=== PATIENT | male | born 1960 | race African-American/Black ===

== ENCOUNTER 2018-05-27 09:54 | Observation (INO) | payer OTHER ==
[~2018-05-27 09:54] MED LIST: CIPROFLOXACIN 400 MG in D5W 200 ML IVPB
[2018-05-27] MEDS ORDERED: PROPOFOL 20 ML (12:51)
[2018-05-27] MEDS ORDERED: MIDAZOLAM 1 MG/ML 2 ML INJ (12:51)
[2018-05-27] MEDS ORDERED: FENTAnyl 50 MCG/ML VIAL (12:51)
[2018-05-27] MEDS ORDERED: KETOROLAC 30 MG INJ (13:48)
[2018-05-27] MEDS ORDERED: ONDANSETRON 4 MG INJ (13:48)
[2018-05-27] MEDS ORDERED: ROCURONIUM 50 MG INJ (13:48)
[2018-05-27] MEDS ORDERED: METOCLOPRAMIDE 10 MG INJ (13:48)
[2018-05-27] MEDS ORDERED: DEXAMETHASONE 4 MG/ML 5 ML INJ (13:48)
[2018-05-27] MEDS ORDERED: HYDROmorphONE 1 MG/5 ML IV SYRINGE IV ×3 (14:00)
[2018-05-27] MEDS ORDERED: LABETALOL HCL 20MG INJ IV (14:00)
[2018-05-27] MEDS ORDERED: EPHEDrine SULFATE 50 MG/5 ML SYG IV (14:00)
[2018-05-27] MEDS ORDERED: FENTAnyl 50 MCG/ML VIAL IV ×3 (14:00)
[2018-05-27] MEDS ORDERED: hydrALAzine 20 MG INJ IV (14:00)
[2018-05-27] MEDS ORDERED: ONDANSETRON 4 MG INJ IV (14:00)
[2018-05-27] MEDS ORDERED: OXYCODONE/ACETAMINOPHEN (5/325) TAB PO (14:00)
[2018-05-27] MEDS ORDERED: METOCLOPRAMIDE 10 MG INJ IV (14:00)
[2018-05-27] MEDS ORDERED: DIPHENHYDRAMINE 50 MG INJ IV (14:00)
[2018-05-27] MEDS ORDERED: GLYCOPYRROLATE 0.4 MG INJ (14:24)
[2018-05-27] MEDS ORDERED: NEOSTIGMINE 3 MG/3 ML SYRINGE (14:24)
[2018-05-27] MEDS: MEPERIDINE 25 MG INJ IV (14:49)
[2018-05-27] MEDS ORDERED: morphine 2 MG INJ IV (15:00)
[2018-05-27] MEDS ORDERED: HYDROCODONE/APAP (5/325) TAB PO (15:00)
[2018-05-27] MEDS ORDERED: MAGNESIUM HYDROXIDE 30ML CUP PO (15:00)
[2018-05-27 15:10] LABS: ADD MAN DIFF? NO
[2018-05-27 15:11] LABS: WHITE BLOOD COUNT 3.7 10^3/ul (4.8-10.8)
[2018-05-27 15:11] LABS: BASOPHILS % 0.5 % (0.0-2.0); EOSINOPHILS # 0.1 10^3/ul (0.0-0.5); EOSINOPHILS % 2.7 % (0.0-7.0); HEMATOCRIT 38.8 % (42.0-52.0); HEMOGLOBIN 12.8 g/dl (14.0-18.0); LYMPHOCYTES # 1.4 10^3/ul (0.8-2.9); LYMPHOCYTES % 37.4 % (15.0-51.0); MEAN CORPUSCULAR HEMOGLOBIN 33.5 pg (29.0-33.0); MEAN CORPUSCULAR VOLUME 101.6 fl (82.0-101.0); MEAN PLATELET VOLUME 9.3 fl (7.4-10.4); MONOCYTE # 0.4 10^3/ul (0.3-0.9); MONOCYTES % 10.2 % (0.0-11.0); NEUTROPHIL # 1.8 10^3/ul (1.6-7.5); NEUTROPHILS % 49.2 % (39.0-77.0); PLATELET COUNT 200 10^3/UL (140-415); RED BLOOD COUNT 3.82 10^6/ul (4.70-6.10); RED CELL DISTRIBUTION WIDTH 12.3 % (11.5-14.5)
[2018-05-27 15:27] LABS: HOLD TRANSMISSIONS 1
[2018-05-27] MEDS: BELLADONNA ALK/OPIUM SUPP PR (15:46)
[2018-05-27] MEDS: DEXTROSE 5%-0.45% NACL 1,000 ML IV ×2 (15:52→20:42)
[2018-05-27] MEDS: CIPROFLOXACIN 500 MG TAB PO (17:51)
[2018-05-27] MEDS: TAMSULOSIN (SR) 0.4 MG CAP PO (20:36)
[2018-05-27] MEDS: DOCUSATE SODIUM 100 MG CAP PO (20:36)
[2018-05-27] MEDS: morphine 2 MG INJ IV (20:37)
[2018-05-27] MEDS: GABAPENTIN 300 MG CAP PO (20:37)
[2018-05-28] MEDS: morphine 2 MG INJ IV ×3 (01:34→13:08)
[2018-05-28] MEDS: CIPROFLOXACIN 500 MG TAB PO (05:59)
[2018-05-28] MEDS: DOCUSATE SODIUM 100 MG CAP PO (09:09)
[2018-05-28] MEDS: FINASTERIDE 5 MG TAB PO (09:12)
[2018-05-28] MEDS: GABAPENTIN 300 MG CAP PO ×2 (09:12→13:07)
== END 2018-05-28 14:42 | disposition home or self-care (01) ==
LOC: SDS 09:54 → REC 15:06 → PP2 18:05
PROVIDERS: Urology
DX: R33.9 Retention of urine, unspecified (principal)
CPT/HCPCS: 52630; 85025; 88305; 99217

== ENCOUNTER 2018-08-26 07:22 | Observation (INO) | payer OTHER ==
[2018-08-26] MEDS: CIPROFLOXACIN 400 MG in D5W 200 ML IVPB (06:00)
[2018-08-26] MEDS ORDERED: PROPOFOL 20 ML (09:07)
[2018-08-26] MEDS ORDERED: SUCCINYLCHOLINE CHLORIDE 100 MG/5 ML SYG IV (09:07)
[2018-08-26] MEDS ORDERED: GLYCOPYRROLATE 0.4 MG INJ ×2 (09:07→09:58)
[2018-08-26] MEDS ORDERED: NEOSTIGMINE 3 MG/3 ML SYRINGE (09:07)
[2018-08-26] MEDS ORDERED: ROCURONIUM 50 MG INJ (09:07)
[2018-08-26] MEDS ORDERED: LIDOCAINE 2% (SDV) 5 ML INJ (09:07)
[2018-08-26] MEDS ORDERED: ONDANSETRON 4 MG INJ (09:25)
[2018-08-26] MEDS ORDERED: CIPROFLOXACIN 400MG/D5W 200 ML (09:25)
[2018-08-26] MEDS ORDERED: HYDROmorphONE 1 MG/5 ML IV SYRINGE IV ×3 (09:30)
[2018-08-26] MEDS ORDERED: ONDANSETRON 4 MG INJ IV (09:30)
[2018-08-26] MEDS ORDERED: LABETALOL HCL 20MG INJ IV (09:30)
[2018-08-26] MEDS ORDERED: METOCLOPRAMIDE 10 MG INJ IV (09:30)
[2018-08-26] MEDS ORDERED: MIDAZOLAM 1 MG/ML 2 ML INJ IV (09:30)
[2018-08-26] MEDS ORDERED: DIPHENHYDRAMINE 50 MG INJ IV (09:30)
[2018-08-26] MEDS ORDERED: MEPERIDINE 25 MG INJ IV (09:30)
[2018-08-26] MEDS ORDERED: FENTAnyl 50 MCG/ML VIAL IV ×3 (09:30)
[2018-08-26] MEDS ORDERED: EPHEDrine 25 MG/5 ML SYG IV (09:30)
[2018-08-26] MEDS ORDERED: hydrALAzine 20 MG INJ IV (09:30)
[2018-08-26] MEDS: BELLADONNA ALK/OPIUM SUPP PR (10:00)
[2018-08-26] MEDS ORDERED: BELLADONNA ALK/OPIUM SUPP PR (10:30)
[2018-08-26] MEDS ORDERED: MAGNESIUM HYDROXIDE 30ML CUP PO (10:30)
[2018-08-26] MEDS: morphine 2 MG INJ IV ×2 (13:38→22:04)
[2018-08-26] MEDS: GABAPENTIN 300 MG CAP PO ×2 (13:39→20:16)
[2018-08-26] MEDS: DEXTROSE 5%-0.45% NACL 1,000 ML IV (13:39)
[2018-08-26] MEDS: FINASTERIDE 5 MG TAB PO (13:39)
[2018-08-26] MEDS: HYDROCODONE/APAP (5/325) TAB PO ×2 (15:08→19:04)
[2018-08-26] MEDS: TAMSULOSIN (SR) 0.4 MG CAP PO (20:15)
[2018-08-26] MEDS: CIPROFLOXACIN 500 MG TAB PO (20:15)
[2018-08-26] MEDS: DOCUSATE SODIUM 100 MG CAP PO (20:16)
[2018-08-27] MEDS: HYDROCODONE/APAP (5/325) TAB PO (00:48)
[2018-08-27] MEDS: morphine 2 MG INJ IV ×2 (04:42→11:04)
[2018-08-27] MEDS: DEXTROSE 5%-0.45% NACL 1,000 ML IV ×2 (06:25→07:28)
[2018-08-27] MEDS: CIPROFLOXACIN 500 MG TAB PO (07:23)
[2018-08-27] MEDS: GABAPENTIN 300 MG CAP PO (08:35)
[2018-08-27] MEDS: DOCUSATE SODIUM 100 MG CAP PO (08:36)
== END 2018-08-27 11:55 | disposition home or self-care (01) ==
LOC: SDS 07:22 → REC 10:25 → MS1 13:09
DX: N40.1 Benign prostatic hyperplasia with lower urinary tract symptoms (principal); R33.8 Other retention of urine
CPT/HCPCS: 51102; 88305